=== PATIENT | female | born 1940 | race Caucasian/White ===

== ENCOUNTER 2021-02-28 11:23 | Observation (INO) | payer MEDICARE, OTHER ==
[2021-02-28] MEDS ORDERED: Zofran 4 MG/2 ML VIAL IV ONE (11:50)
[2021-02-28] MEDS ORDERED: PROTONIX 40 MG IV IV ONE ×2 (11:50→12:05)
[2021-02-28] MEDS ORDERED: MORPHINE SULFATE 4 MG INJ IV ONE (11:50)
[2021-02-28] MEDS ORDERED: APRESOLINE 20 MG/ML INJ IV ONE (11:52)
[2021-02-28] MEDS ORDERED: Sodium Chloride 0.9% 1000 ML 1,000 ML IV SCH (12:00)
[2021-02-28] MEDS ORDERED: Zofran 4 MG/2 ML VIAL ONE (12:04)
[2021-02-28] MEDS ORDERED: MORPHINE SULFATE 4 MG INJ ONE (12:05)
[2021-02-28] MEDS ORDERED: APRESOLINE 20 MG/ML INJ ONE ×2 (12:05→15:11)
[2021-02-28] MEDS ORDERED: Sodium Chloride 0.9% 1000 ML 1,000 ML ONE (12:05)
[2021-02-28 12:15] LABS: Absolute Neutrophil Ct (ANC) 15.54 (1.4-6.9); BASOPHIL % 0.1 % (0.0-0.4); Basophil (Absolute #) 0.01 (0-0.4); Eosinophil (Absolute #) 0 (0-0.5); Hematocrit 33.6 % (35-47); Hemoglobin 10.5 gm/dl (12.0-16.0); Lymphocytes % 4.1 % (24.0-44.0); Mean Cell Volume 103.1 fl (78-100); Mean Corpuscular Hemoglobin 32.2 pg (26-32); Mean Corpuscular Hgb Concent. 31.3 g/dl (32-36); Monocyte (Absolute #) 0.99 (0.0-1.3); Monocytes % 5.7 % (0.0-12.0); Neutrophil % 90.1 % (36.0-66.0); Platelet Count 217 K/mm3 (150-450); Red Blood Count 3.26 M/mm3 (4.1-5.4); Red Cell Distribution Width 13.5 % (11.5-14.0); White Blood Count 17.2 K/mm3 (4.0-10.5)
[2021-02-28 12:18] LABS: ALKALINE PHOSPHATASE 70 U/L (38-126); AMYLASE 58 U/L (30-110); BLOOD UREA NITROGEN 37 mg/dL (7-17); Calcium 9.9 mg/dL (8.4-10.2); Creatinine 1 1.78 mg/dL (0.52-1.04); EST GLOMERULAR FILTRATION RATE 29.1 ML/MIN; Glucose 181 mg/dL (74-106); SGOT/AST 23 U/L (14-36); Total Protein 7.1 g/dL (6.3-8.2)
--- NOTE | 2021-02-28 12:21 | XRAY ---
Indication: Head and neck pain. Status post fall. Syncope. Multiple contiguous axial images obtained through the head without contrast. Comparison: None Age-appropriate global atrophy and moderate/advanced periventricular degenerative micro-ischemia bilaterally. No acute intracranial hemorrhage, abnormal extra-axial fluid collection, or mass effect. Fourth ventricle is midline without hydrocephalus. Bony calvarium intact. Visualized paranasal sinuses and mastoid air cells are clear. Impression: Nonacute senile brain.
[2021-02-28 12:25] LABS: Appearance CLOUDY (CLEAR); Bilirubin NEGATIVE (NEGATIVE); Blood NEGATIVE Ery/ul (0-5); Glucose NEGATIVE (NEGATIVE); Ketones NEGATIVE (NEGATIVE); Leukocyte Esterase MODERATE (NEGATIVE); Nitrite NEGATIVE (NEGATIVE); Protein,Urine Dip 100 (Negative); Specific Gravity 1.014 (1.005-1.025); Urobilinogen NEGATIVE mg/dL (0-1); WBC >100 /HPF (0-5)
--- NOTE | 2021-02-28 12:25 | XRAY ---
Indication: Head and neck pain. Status post fall. Syncope. Multiple contiguous axial images obtained through the cervical spine. Sagittal and coronal reformatted images obtained. Comparison: None Axial images are negative for acute fracture, suspicious bony lesions, or spinal canal stenosis. Minimal/mild C3-C6 degenerative endplate spurring and mild multilevel bilateral degenerative facet hypertrophy. Sagittal and coronal reformatted images demonstrates normal alignment with minimal C3-C6 disc space narrowing. No acute compression fracture, subluxation, or jumped facet. Normal appearing craniocervical junction. Visualized noncontrasted soft tissues demonstrates moderate scattered arteriosclerotic calcifications bilaterally and biapical pulmonary emphysema. Impression: 1. Negative for acute fracture/subluxation. 2. Incidental multilevel degenerative changes, arteriosclerotic calcifications, and pulmonary emphysema.
[2021-02-28 12:26] LABS: Bacteria NONE SEEN /HPF (NEGATIVE); Budding Yeast Rare /HPF (NEGATIVE); Epithelial Cells RARE /HPF (FEW)
--- NOTE | 2021-02-28 12:26 | XRAY ---
Indication: Abdomen pain, vomiting, and syncope. Comparison: None Portable chest hyperinflated and clear. Heart not enlarged. Aorta is mildly atherosclerotic. Bony thorax intact with mild osteopenia and degenerative changes. Impression: Nonacute hyperinflated chest with chronic features.
--- NOTE | 2021-02-28 12:37 | XRAY ---
Indication: Left lower quadrant pain. Status post fall. Syncope. Multiple contiguous axial images obtained through the abdomen and pelvis without contrast. Comparison: None Study slightly degraded by beam artifact from patient's arms. Lung bases demonstrate pulmonary emphysema and minimal dependent atelectasis. No infiltrate or effusion. Heart is not enlarged with small pericardial effusion/thickening anteriorly. There is a large AAA with presence of aortobiiliac stent graft. Also incompletely visualized left femoral bypass stent graft. AAA measures at least 9.0 x 9.2 cm in greatest axial dimension and at least 12.2 cm in length. Lack of IV contrast precludes further characterization and also limits evaluation for active hemorrhage/leak. There is tiny right abdominal and pelvic free fluid. No free air. Lack of IV contrast and little peritoneal fat limits evaluation of the solid organs. Pancreas not well visualized. Noncontrasted stomach and bowel loops appear nonobstructed. There are a few bilateral renal cysts, largest right mid to upper pole measuring 5.7 cm. Remaining liver, gallbladder, spleen, adrenal glands, kidneys, ureters, and bladder are unremarkable for noncontrast exam. Osseous structures demonstrate osteopenia, mild/moderate degenerative changes throughout the lumbar spine, and L4-S1 laminectomy Impression: 1. Large AAA with aortobiiliac stent graft as detailed. Lack of IV contrast limits further characterization and evaluation for active hemorrhage/leak. However there is tiny abdominal and pelvic free fluid. 2. Nonvisualization pancreas. 3. Bilateral renal cysts, pulmonary emphysema, and chronic bony findings. 4. Incidental small anterior pericardial effusion/thickening. Echocardiogram may yield further information. Comment: Telephone report was given to ordering clinician, Dr. Jay at 1225 hrs. on February 28, 2021.
[2021-02-28 12:54] LABS: CHLORIDE 105 mmol/L (98-107); Potassium 4.8 mmol/L (3.5-5.1); SGPT/ALT 16 U/L (0-35); SODIUM 143 mmol/L (137-145)
[2021-02-28 12:55] LABS: LIPASE 71 U/L (23-300)
[2021-02-28 12:56] LABS: Carbon Dioxide 27 mmol/L (22-30)
[2021-02-28 13:20] LABS: Hematocrit 32.2 % (35-47); Hemoglobin 9.7 gm/dl (12.0-16.0); Mean Cell Volume 105.9 fl (78-100); Mean Corpuscular Hemoglobin 31.9 pg (26-32); Mean Corpuscular Hgb Concent. 30.1 g/dl (32-36); Mean Platelet Volume 10.9 fl (7.5-11.0); Platelet Count 195 K/mm3 (150-450); Red Blood Count 3.04 M/mm3 (4.1-5.4); Red Cell Distribution Width 13.5 % (11.5-14.0); White Blood Count 17.5 K/mm3 (4.0-10.5)
--- NOTE | 2021-02-28 13:25 | ERPHSYRPT ---
- History of Present Illness Time Seen by Provider: 02/28/21 11:49 Historian: patient, family, EMS Patient Subjective Stated Complaint: Per EMS and daughter, "She has had abdominal pain and been passing out." Triage Nursing Assessment: The patient's daughter reported the patient was complaining of abdominal pain at home this morning. The daughter checks on the patient at least 4 times per day and is a good historian for the patient. Daughter reported the patient has lost significant weight, become increasingly weak, and exhibited more confusion. Unknown if the patient has fallen. The daughter reported noticing a decreased oral food/fluid intake over the past few days. Patient presented confused and weak. Able to answer name and month. Incorrect on year and president. Head atraumatic normocephalic save a sing site of ecchymosis above the right eyebrow. Pupils 3mm direct/consensual reaction to light. Oral mucosa pale/dry. neck without lymphadenopathy. Symmetrical chest expansion. heart tones S1/S2 regular rate and rhythm. Lungs vesicular with adequate airflow. Abdomen flat with mild distention in the URQ/ULQ and tender to palpation. Hypoactive bowel sounds. Peipheral pulses +2 bilateral. No noted dependent edema. Physician History: 80 years old female with history of hypertension, AAA status post surgical and endovascular repair in the past presented in the ER with chief complaint of abdominal pain since yesterday with progressive worsening moderate to severe sharp nature in the upper abdomen with radiation to the back. Patient lives alone and daughter keeps check on her and this morning she was not out of bed, patient reported to daughter she has been falling and hit her head and keep passing out because of the pain. She also is confused and not acting her baseline. She is generally weak all over. She is on Xarelto as well. Timing/Duration: yesterday, gradual onset, worse Activities at Onset: rest Quality: sharpness Abdominal Pain Onset Location: RUQ, LUQ, epigastric, periumbilical Pain Radiation: back Severity of Pain-Max: severe Severity of Pain-Current: moderate Modifying Factors: Improves With: nothing Associated Symptoms: syncope Previous symptoms: no prior history Allergies/Adverse Reactions: No Known Drug Allergies Allergy (Verified 02/28/21 17:37) Home Medications: Coreg 12.5 mg 12.5 mg PO BID 07/19/12 [History] Simvastatin 40 mg 40 mg PO DAILY 07/19/12 [History] Xarelto 15 mg PO DAILY 07/19/12 [History] PANTOPRAZOLE 40 mg Tablet [Protonix 40MG Tablet] 1 tab PO BID 02/28/21 [History] lisinopriL [Zestril] 1 tab PO DAILY 02/28/21 [History] Hx Tetanus, Diphtheria Vaccination/Date Given: No (PT UNSURE) Hx Influenza Vaccination/Date Given: Yes (2010) Hx Pneumococcal Vaccination/Date Given: No Travel Risk - International Travel Have you traveled outside of the country in past 3 weeks: No - Coronavirus Screening Close contact with a COVID-19 positive Pt in past 14-21 Days: No - Vaccine Status Have you recieved a Covid-19 vaccination: Yes Patient Care Technician: Moderna - Vaccination Dates Date of 2cond Vaccination (if applicable): 12/13/20 - Review of Systems Constitutional: Fatigue, Lethargy Eyes: No Symptoms Ears, Nose, & Throat: No Symptoms Respiratory: No Symptoms Cardiac: No Symptoms Abdominal/Gastrointestinal: Abdominal Pain, Nausea Genitourinary Symptoms: No Symptoms Musculoskeletal: Back Pain Skin: No Symptoms Neurological: Lethargy Psychological: No Symptoms Endocrine: No Symptoms Hematologic/Lymphatic: No Symptoms Immunological/Allergic: No Symptoms - Past Medical History Pertinent Past Medical History: Yes Neurological History: No Pertinent History ENT History: No Pertinent History Cardiac History: Arrhythmia, Hypertension, Peripheral Vascular Disease Respiratory History: COPD Endocrine Medical History: No Pertinent History Musculoskeletal History: Arthritis GI Medical History: Colitis - Past Surgical History Past Surgical History: Yes Cardiac: Vascular Surgery, Other Gastrointestinal: Appendectomy, Cholecystectomy Female Surgical History: Hysterectomy Other Surgical History: AAA REPAIR-2 WKS AGO. - Social History Smoking Status: Current every day smoker How long have you smoked: "YEARS" Exposure to second hand smoke: No Drug Use: none Patient Lives Alone: No (lives with her ) - Nursing Vital Signs Nursing Vital Signs: Initial Vital Signs Temperature 97.9 F 02/28/21 11:23 Pulse Rate 70 02/28/21 11:23 Respiratory Rate 14 02/28/21 11:23 Blood Pressure 216/146 02/28/21 11:23 O2 Sat by Pulse Oximetry 98 02/28/21 11:23 Pain Scale Pain Intensity 6 - Physical Exam General Appearance: no apparent distress, alert, lethargy Eye Exam: PERRL/EOMI, pale conjunctivae, other Ears, Nose, Throat Exam: normal ENT inspection, TMs normal, pharynx normal Neck Exam: normal inspection, non-tender, supple, full range of motion Respiratory Exam: normal breath sounds, lungs clear Cardiovascular Exam: regular rate/rhythm, normal heart sounds Gastrointestinal/Abdomen Exam: tenderness (Generalized), distention, guarding Back Exam: normal inspection, normal range of motion Extremity Exam: normal inspection, normal range of motion, pelvis stable Neurologic Exam: alert, oriented x 3, cooperative, information coder II-XII nml as tested Skin Exam: pale SpO2 Interpretation: normal SpO2: 92 O2 Delivery: Room Air - Course EKG Interpreted by Me: RATE (66), Sinus Rhythm, NORMAL AXIS, NORMAL INTERVALS, Q-wave (Anteroseptal) Ordered Tests: Active Orders 24 hr Category Date Time Status Code Status Order ROUTINE Care 02/28/21 17:26 Active EKG-ER Only STAT Care 02/28/21 11:50 Completed Alejandre [Catheter-[place] Alejandre] STAT Care 02/28/21 17:00 Completed IV Care Q6H Care 02/28/21 17:26 Active IV Insertion STAT Care 02/28/21 11:50 Completed NPO (ED) STAT Care 02/28/21 11:[address] in Observation ROUTINE Care 02/28/21 17:26 Active Weight,Daily 0600 Care 02/28/21 17:26 Active Heart-Healthy Diet Diet 02/28/21 Dinner Active ABDOMEN AND PELVIS W/0 CONTRAS [CT] Stat Exams 02/28/21 11:49 Completed CERVICAL SPINE WO CONTRAST [CT] Stat Exams 02/28/21 11:50 Completed CHEST 1 VIEW (PORTABLE) Stat Exams 02/28/21 11:51 Completed CTA ABDOMEN W AND/OR WO CONTRA [CT] Stat Exams 02/28/21 13:32 Completed HEAD WITHOUT CONTRAST [CT] Stat Exams 02/28/21 11:50 Completed AMYLASE Stat Lab 02/28/21 11:20 Completed CBC Stat Lab 02/28/21 12:50 Completed CBC W DIFF AM.LAB Lab 03/01/21 04:00 Ordered CBC W DIFF Stat Lab 02/28/21 11:20 Completed CMP AM.LAB Lab 03/01/21 04:00 Ordered CMP Stat Lab 02/28/21 11:20 Completed CULTURE,URINE Stat Lab 02/28/21 11:20 Received LIPASE Stat Lab 02/28/21 11:20 Completed Lactic Acid Stat Lab 02/28/21 11:50 Completed TROPONIN Q3H Lab 02/28/21 11:20 Completed TROPONIN Q3H Lab 03/01/21 00:00 Ordered UA W/RFX UR CULTURE Stat Lab 02/28/21 11:20 Completed Transfer Order Routine Transfer 02/28/21 Completed Medication Summary Generic Name Dose Route Start Last Admin Trade Name Artur PRN Reason Stop Dose Admin Hydralazine HCl 10 mg 02/28/21 17:26 Apresoline 20 Mg/Ml Inj IV 03/30/21 17:25 Q4H PRN PRN HYPERTENSION Sodium Chloride 1,000 mls @ 100 mls/hr 02/28/21 17:26 02/28/21 18:28 Sodium Chloride 0.9% 1000 Ml IV 03/30/21 17:25 Not Given .Q10H JAGDEEP Lorazepam 0.5 mg 02/28/21 18:33 02/28/21 18:59 Ativan 2 Mg/1 Ml Vial IV 03/30/21 18:32 0.5 mg Q2-4HPRN PRN Administration ANXIETY Morphine Sulfate 2 mg 02/28/21 17:26 02/28/21 20:49 Morphine Sulfate 2 Mg Inj IV 03/05/21 17:25 2 mg Q2H PRN PRN Administration PAIN Ondansetron HCl 4 mg 02/28/21 17:26 02/28/21 18:20 Zofran 4 Mg/2 Ml Vial IV 03/30/21 17:25 4 mg Q6H PRN PRN Administration NAUSEA/VOMITING Discontinued Medications Generic Name Dose Route Start Last Admin Trade Name Artur PRN Reason Stop Dose Admin Fentanyl Citrate 50 mcg 02/28/21 15:24 02/28/21 15:26 Sublimaze 100 Mcg/2 Ml IV 02/28/21 15:25 50 mcg STAT ONE Administration Fentanyl Citrate Confirm 02/28/21 15:25 Sublimaze 100 Mcg/2 Ml Administered 02/28/21 15:26 Dose 100 mcg .ROUTE .STK-MED ONE Fentanyl Citrate 50 mcg 02/28/21 17:06 02/28/21 17:08 Sublimaze 100 Mcg/2 Ml IV 02/28/21 17:07 50 mcg STAT ONE Administration Fentanyl Citrate Confirm 02/28/21 17:06 Sublimaze 100 Mcg/2 Ml Administered 02/28/21 17:07 Dose 100 mcg .ROUTE .STK-MED ONE Hydralazine HCl 10 mg 02/28/21 11:52 02/28/21 12:08 Apresoline 20 Mg/Ml Inj IV 02/28/21 11:53 10 mg STAT ONE Administration Hydralazine HCl Confirm 02/28/21 12:05 Apresoline 20 Mg/Ml Inj Administered 02/28/21 12:06 Dose 20 mg .ROUTE .STK-MED ONE Hydralazine HCl Confirm 02/28/21 15:11 Apresoline 20 Mg/Ml Inj Administered 02/28/21 15:12 Dose 20 mg .ROUTE .STK-MED ONE Hydralazine HCl 10 mg 02/28/21 15:13 02/28/21 15:16 Apresoline 20 Mg/Ml Inj IV 02/28/21 15:14 10 mg STAT ONE Administration Sodium Chloride 1,000 mls @ 100 mls/hr 02/28/21 12:00 02/28/21 12:07 Sodium Chloride 0.9% 1000 Ml IV 03/30/21 11:59 100 mls/hr .Q10H JAGDEEP Administration Sodium Chloride Confirm 02/28/21 12:05 Sodium Chloride 0.9% 1000 Ml Administered 02/28/21 12:06 Dose 1,000 mls @ ud .ROUTE .STK-MED ONE Morphine Sulfate 4 mg 02/28/21 11:50 02/28/21 12:07 Morphine Sulfate 4 Mg Inj IV 02/28/21 11:51 4 mg STAT ONE Administration Morphine Sulfate Confirm 02/28/21 12:05 Morphine Sulfate 4 Mg Inj Administered 02/28/21 12:06 Dose 4 mg .ROUTE .STK-MED ONE Morphine Sulfate 2 mg 02/28/21 14:17 02/28/21 14:22 Morphine Sulfate 2 Mg Inj IV 02/28/21 14:18 2 mg STAT ONE Administration Morphine Sulfate Confirm 02/28/21 14:21 Morphine Sulfate 2 Mg Inj Administered 02/28/21 14:22 Dose 2 mg .ROUTE .STK-MED ONE Ondansetron HCl 4 mg 02/28/21 11:50 02/28/21 12:07 Zofran 4 Mg/2 Ml Vial IV 02/28/21 11:51 4 mg STAT ONE Administration Ondansetron HCl Confirm 02/28/21 12:04 Zofran 4 Mg/2 Ml Vial Administered 02/28/21 12:05 Dose 4 mg .ROUTE .STK-MED ONE Pantoprazole Sodium 40 mg 02/28/21 11:50 02/28/21 12:08 Protonix 40 Mg Iv IV 02/28/21 11:51 40 mg STAT ONE Administration Pantoprazole Sodium Confirm 02/28/21 12:05 Protonix 40 Mg Iv Administered 02/28/21 12:06 Dose 40 mg IV .STK-MED ONE Lab/Rad Data: Laboratory Result Diagrams 02/28/21 12:50 02/28/21 11:20 Laboratory Results 02/28/21 02/28/21 02/28/21 Range/Units 15:46 12:50 11:50 WBC 17.5 H (4.0-10.5) K/mm3 RBC 3.04 L (4.1-5.4) M/mm3 Hgb 9.7 L (12.0-16.0) gm/dl Hct 32.2 L (35-47) % MCV 105.9 H (78-100) fl MCH 31.9 (26-32) pg MCHC 30.1 L (32-36) g/dl RDW 13.5 (11.5-14.0) % Plt Count 195 (150-450) K/mm3 MPV 10.9 (7.5-11.0) fl Gran % (36.0-66.0) % Eos # (Auto) (0-0.5) Absolute Lymphs (auto) (1.0-4.6) Absolute Monos (auto) (0.0-1.3) Lymphocytes % (24.0-44.0) % Monocytes % (0.0-12.0) % Eosinophils % (0.00-5.0) % Basophils % (0.0-0.4) % Absolute Granulocytes (1.4-6.9) Basophils # (0-0.4) Sodium (137-145) mmol/L Potassium (3.5-5.1) mmol/L Chloride (98-107) mmol/L Carbon Dioxide (22-30) mmol/L Anion Gap BUN (7-17) mg/dL Creatinine (0.52-1.04) mg/dL Estimated GFR ML/MIN Glucose (74-106) mg/dL Lactic Acid 2.5 H (0.4-2.0) Calcium (8.4-10.2) mg/dL Total Bilirubin (0.2-1.3) mg/dL AST (14-36) U/L ALT (0-35) U/L Alkaline Phosphatase (38-126) U/L Troponin I (0.000-0.034) ng/mL Serum Total Protein (6.3-8.2) g/dL Albumin (3.5-5.0) g/dL Amylase (30-110) U/L Lipase (23-300) U/L Urine Color (YELLOW) Urine Appearance (CLEAR) Urine pH (5-6) Ur Specific [place] (1.005-1.025) Urine Protein (Negative) Urine Ketones (NEGATIVE) Urine Blood (0-5) Coleman/ul Urine Nitrite (NEGATIVE) Urine Bilirubin (NEGATIVE) Urine Urobilinogen (0-1) mg/dL Ur Leukocyte Esterase (NEGATIVE) Urine WBC (Auto) (0-5) /HPF Urine RBC (Auto) (0-2) /HPF U Epithel Cells (Auto) (FEW) /HPF Urine Bacteria (Auto) (NEGATIVE) /HPF Urine Yeast (Budding) (NEGATIVE) /HPF Urine Culture Reflexed (NO) Urine Glucose (NEGATIVE) mg/dL Influenza Type A Ag NEGATIVE (NEGATIVE) Influenza Type B Ag NEGATIVE (NEGATIVE) RSV (PCR) NEGATIVE (Negative) SARS-CoV-2 (PCR) NEGATIVE (NEGATIVE) 02/28/21 02/28/21 02/28/21 Range/Units 11:20 11:20 11:20 WBC (4.0-10.5) K/mm3 RBC (4.1-5.4) M/mm3 Hgb (12.0-16.0) gm/dl Hct (35-47) % MCV (78-100) fl MCH (26-32) pg MCHC (32-36) g/dl RDW (11.5-14.0) % Plt Count (150-450) K/mm3 MPV (7.5-11.0) fl Gran % (36.0-66.0) % Eos # (Auto) (0-0.5) Absolute Lymphs (auto) (1.0-4.6) Absolute Monos (auto) (0.0-1.3) Lymphocytes % (24.0-44.0) % Monocytes % (0.0-12.0) % Eosinophils % (0.00-5.0) % Basophils % (0.0-0.4) % Absolute Granulocytes (1.4-6.9) Basophils # (0-0.4) Sodium 143 (137-145) mmol/L Potassium 4.8 (3.5-5.1) mmol/L Chloride 105 (98-107) mmol/L Carbon Dioxide 27 (22-30) mmol/L Anion Gap Not Reportable BUN 37 H (7-17) mg/dL Creatinine 1.78 H (0.52-1.04) mg/dL Estimated GFR 29.1 ML/MIN Glucose 181 H (74-106) mg/dL Lactic Acid (0.4-2.0) Calcium 9.9 (8.4-10.2) mg/dL Total Bilirubin 0.80 (0.2-1.3) mg/dL AST 23 (14-36) U/L ALT 16 (0-35) U/L Alkaline Phosphatase 70 (38-126) U/L Troponin I < 0.012 (0.000-0.034) ng/mL Serum Total Protein 7.1 (6.3-8.2) g/dL Albumin 4.0 (3.5-5.0) g/dL Amylase 58 (30-110) U/L Lipase 71 (23-300) U/L Urine Color YELLOW (YELLOW) Urine Appearance CLOUDY (CLEAR) Urine pH 6.0 (5-6) Ur Specific [place] 1.014 (1.005-1.025) Urine Protein 100 (Negative) Urine Ketones NEGATIVE (NEGATIVE) Urine Blood NEGATIVE (0-5) Coleman/ul Urine Nitrite NEGATIVE (NEGATIVE) Urine Bilirubin NEGATIVE (NEGATIVE) Urine Urobilinogen NEGATIVE (0-1) mg/dL Ur Leukocyte Esterase MODERATE (NEGATIVE) Urine WBC (Auto) >100 (0-5) /HPF Urine RBC (Auto) 3-5 (0-2) /HPF U Epithel Cells (Auto) RARE (FEW) /HPF Urine Bacteria (Auto) NONE SEEN (NEGATIVE) /HPF Urine Yeast (Budding) Rare (NEGATIVE) /HPF Urine Culture Reflexed YES (NO) Urine Glucose NEGATIVE (NEGATIVE) mg/dL Influenza Type A Ag (NEGATIVE) Influenza Type B Ag (NEGATIVE) RSV (PCR) (Negative) SARS-CoV-2 (PCR) (NEGATIVE) 02/28/21 Range/Units 11:20 WBC 17.2 H (4.0-10.5) K/mm3 RBC 3.26 L (4.1-5.4) M/mm3 Hgb 10.5 L (12.0-16.0) gm/dl Hct 33.6 L (35-47) % MCV 103.1 H (78-100) fl MCH 32.2 H (26-32) pg MCHC 31.3 L (32-36) g/dl RDW 13.5 (11.5-14.0) % Plt Count 217 (150-450) K/mm3 MPV 11.0 (7.5-11.0) fl Gran % 90.1 H (36.0-66.0) % Eos # (Auto) 0 (0-0.5) Absolute Lymphs (auto) 0.70 L (1.0-4.6) Absolute Monos (auto) 0.99 (0.0-1.3) Lymphocytes % 4.1 L (24.0-44.0) % Monocytes % 5.7 (0.0-12.0) % Eosinophils % 0.0 (0.00-5.0) % Basophils % 0.1 (0.0-0.4) % Absolute Granulocytes 15.54 H (1.4-6.9) Basophils # 0.01 (0-0.4) Sodium (137-145) mmol/L Potassium (3.5-5.1) mmol/L Chloride (98-107) mmol/L Carbon Dioxide (22-30) mmol/L Anion Gap BUN (7-17) mg/dL Creatinine (0.52-1.04) mg/dL Estimated GFR ML/MIN Glucose (74-106) mg/dL Lactic Acid (0.4-2.0) Calcium (8.4-10.2) mg/dL Total Bilirubin (0.2-1.3) mg/dL AST (14-36) U/L ALT (0-35) U/L Alkaline Phosphatase (38-126) U/L Troponin I (0.000-0.034) ng/mL Serum Total Protein (6.3-8.2) g/dL Albumin (3.5-5.0) g/dL Amylase (30-110) U/L Lipase (23-300) U/L Urine Color (YELLOW) Urine Appearance (CLEAR) Urine pH (5-6) Ur Specific [place] (1.005-1.025) Urine Protein (Negative) Urine Ketones (NEGATIVE) Urine Blood (0-5) Coleman/ul Urine Nitrite (NEGATIVE) Urine Bilirubin (NEGATIVE) Urine Urobilinogen (0-1) mg/dL Ur Leukocyte Esterase (NEGATIVE) Urine WBC (Auto) (0-5) /HPF Urine RBC (Auto) (0-2) /HPF U Epithel Cells (Auto) (FEW) /HPF Urine Bacteria (Auto) (NEGATIVE) /HPF Urine Yeast (Budding) (NEGATIVE) /HPF Urine Culture Reflexed (NO) Urine Glucose (NEGATIVE) mg/dL Influenza Type A Ag (NEGATIVE) Influenza Type B Ag (NEGATIVE) RSV (PCR) (Negative) SARS-CoV-2 (PCR) (NEGATIVE) - Progress Progress: pain not gone completely, re-examined Progress Note: 02/28/21 13:53 80 years old is evaluated for abdominal pain with generalized weakness fatigue, pale discoloration and passing out. Patient is not in any distress on presentation but is sick looking. Her blood pressure is in 200s, given dose of hydralazine. She is also given morphine for pain relief. I have recommended CT abdomen pelvis with contrast but daughter who is the POA did not want to have any CT done with dye because of kidney function. I have discussed at length about limitation of CT without contrast about diagnosis of AAA leak which she understands. Patient daughter reports that she never wanted to have any kind of surgical procedure done. I have obtained CT head neck without contrast which are negative for any acute trauma related findings. No intracranial bleed. CT abdomen pelvis without contrast showed enlarged AAA 9 x 9.2 cm in greatest with possible leak as there is some free fluid in the pelvis. Because of contrast limitation full evaluation cannot be done but I believe patient is having AAA leak. On reevaluation her blood pressure dropped to 74 systolic. I have given her 2 units of blood on crossmatch emergently after discussion with daughter who agreed with transfusion. She is given fluid bolus as well and blood pressure improved. I have discussed with daughter in length about option of surgical repair/endovascular repair but she did not want anything to be done as patient wished not to go for any kind of surgical procedure. I have discussed with daughter's as well and he also did not want to have any kind of procedure done. Later on discussion with patient and family they agreed with going for endovascular procedure. I have called [facility] who does not do any endovascular procedure and I have had discussed with Dr. Joycelyn Preston who does not think patient can be taken care of at [place] with limited resources and recommended transfer to . I have called [facility] transfer line and have discussed with Dr. Aneesh Mckay who have reviewed films, recommended CTA abdomen pelvis to further evaluate whether patient would be a candidate for any kind of endovascular procedure or not. He did not give recommendations in favor of surgical procedure and also patient does not want to undergo any kind of open surgical procedure. CTA would be obtained and daughter did consent to have dye injection. [facility] would be contacted again after images are uploaded. 02/28/21 15:22 CTA Abdomen pelvis is done which showed active leak. Dr. Mckay has reviewed films, do not think patient is a good candidate for intervention even with endovascular intervention there is a high chance of patient ending up on dialysis afterwards. He has discussed with daughter in detail over the phone and she has talked to patient as well and the whole family decided not to proceed with any kind of surgical/endovascular procedure. Patient/family knows that from now onwards they would be comfort care, DNR. We will continue giving her pain medications, keep her blood pressure under control, patient is discussed with Dr. Brizuela, is admitted to hospital. Discussed with Dr.: Other (Dr. Gomez [id number], Dr.S Preston [id number], Dr. Garret Mckay [id number]) Counseled pt/family regarding: lab results, diagnosis, rad results - Departure Departure Disposition: In-patient Admission Clinical Impression: Leaking abdominal aortic aneurysm (AAA) Condition: Critical Critical Care Time: Yes Critical Care Time(excluding separately billable procedures): Critical 135-164 mins
[2021-02-28] MEDS ORDERED: MORPHINE SULFATE 2 MG INJ IV ONE (14:17)
[2021-02-28] MEDS ORDERED: MORPHINE SULFATE 2 MG INJ ONE (14:21)
--- NOTE | 2021-02-28 14:56 | XRAY ---
Indication: Abdominal pain. AAA. Conventional contrast enhanced CTA abdomen performed using 80 cc Isovue 370 contrast. Two-dimensional sagittal and coronal reformatted images obtained. Additional 3-dimensional reformatted images obtained using a separate workstation. Comparison: Same day CT abdomen/pelvis without contrast exam. There remains a large AAA unchanged in size. There is good contrast opacification of the abdominal aorta, major branches, and aortobiiliac stent grafts. The proximal aortic stent graft demonstrates 40-50% intraluminal narrowing. There is also tiny contrast extravasation anteriorly consistent with stent graft leak. Large matted soft tissue opacity up to 4 cm in thickness nearly encompasses the AAA, possible blood products/clots or soft tissue mass. Remaining distal aortoiliac stent graft appears widely patent. 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 There is normal CTA appearance of the more distal celiac artery and branches. Minimal arteriosclerotic disease seen at the origin of the superior mesenteric artery without critical stenosis or poststenotic dilatation. A normal appearing inferior mesenteric artery not seen. A single renal artery supplies each kidney with mild/moderate proximal arteriosclerotic disease, right greater than left. There is normal bilateral renal enhancement. Stable tiny right abdomen and pelvic free fluid. Normal visceral enhancement with continued poor visualization of the pancreas. Stable bilateral renal cysts. Impression: 1. Better definition of the AAA and aortobiiliac stent grafts. Suspect proximal aortic stent graft leak as detailed. There is also better definition of a large metastatic soft tissue opacity encompassing the AAA, possible blood products/clots or soft tissue mass. 2. Diffuse scattered arteriosclerotic disease including the proximal aortic stent graft. 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 Minimal disease in the superior mesenteric artery and mild/moderate disease in both main renal arteries without critical stenosis/obstruction. Comment: Telephone report was given to ordering clinician, Dr. Jay at 1414 hrs. on February 28, 2021.
[2021-02-28] MEDS: APRESOLINE 20 MG/ML INJ IV ONE ×2 (15:14→15:16)
[2021-02-28] MEDS ORDERED: SUBLIMAZE 100 MCG/2 ML IV ONE ×2 (15:24→17:06)
[2021-02-28] MEDS ORDERED: SUBLIMAZE 100 MCG/2 ML ONE ×2 (15:25→17:06)
[2021-02-28 16:50] LABS: INFLUENZA A NEGATIVE (NEGATIVE); INFLUENZA B NEGATIVE (NEGATIVE); RESPIRATORY SYNCTIAL VIRUS NEGATIVE (Negative)
[2021-02-28] MEDS ORDERED: APRESOLINE 20 MG/ML INJ IV PRN (17:26)
[2021-02-28] MEDS: MORPHINE SULFATE 2 MG INJ IV PRN ×2 (18:20→20:49)
[2021-02-28] MEDS: Zofran 4 MG/2 ML VIAL IV PRN (18:20)
[2021-02-28] MEDS: Sodium Chloride 0.9% 1000 ML 1,000 ML IV SCH (18:28)
[2021-02-28] MEDS ORDERED: Ativan 2 MG/1 ML VIAL IV PRN (18:33)
[2021-03-01] MEDS: MORPHINE SULFATE 2 MG INJ IV PRN ×7 (00:22→20:42)
[2021-03-01 07:00] LABS: ABO TYPING O; Antibody Screen NEGATIVE (NEGATIVE); RH TYPING POSITIVE
[2021-03-01 07:02] LABS: CROSS MATCH (PRBC) COMPATIBLE (COMPATIBLE)
[2021-03-01] MEDS: Ativan 2 MG/1 ML VIAL IV PRN ×2 (10:27→16:20)
[2021-03-01] MEDS: Zofran 4 MG/2 ML VIAL IV PRN (10:46)
[2021-03-01 18:24] VITALS: O2SAT 90
[2021-03-01] MEDS: Sodium Chloride 0.9% 1000 ML 1,000 ML IV SCH ×2 (22:23→22:24)
[2021-03-02] MEDS: MORPHINE SULFATE 2 MG INJ IV PRN ×5 (00:26→11:56)
[2021-03-02] MEDS: Sodium Chloride 0.9% 1000 ML 1,000 ML IV SCH (04:55)
[2021-03-02] MEDS: Zofran 4 MG/2 ML VIAL IV PRN (08:35)
[2021-03-02] MEDS: Ativan 2 MG/1 ML VIAL IV PRN (09:33)
--- NOTE | 2021-03-02 09:40 | PCM.DS ---
Discharge Summary Date of Admission: 02/28/21 17:15 Date of Discharge: 03/02/21 Admitting Physician: ALFREDO HARRIS MD Primary Care Provider: BIBIANA WHITMAN V Allergies Allergies No Known Drug Allergies Allergy (Verified 02/28/21 17:37) Hospital Summary - Vitals & Intake/Output Vital Signs: Vital Signs Temperature 98.6 F 03/01/21 16:00 Pulse Rate 78 03/01/21 16:00 Respiratory Rate 12 03/01/21 16:00 Blood Pressure 124/62 03/01/21 16:00 O2 Sat by Pulse Oximetry 90 L 03/01/21 16:00 Intake & Output: Intake & Output 02/27/21 02/28/21 03/01/21 03/02/21 11:59 11:59 11:59 11:59 Intake Total 750 Output Total 100 600 Balance 650 -600 Weight 47.536 kg 47.5 kg - Lab Result Diagrams: 02/28/21 12:50 02/28/21 11:20 Micro Results-Entire Visit: Microbiology 02/28/21 11:20 Urine Culture - Final Urine, Void <10K NORMAL SKIN PHUONG PROBABLE SKIN CONTAMINANT - Radiology Exams Ordered Rad Exams-Entire Visit: Radiology Procedures Category Date Time Status ABDOMEN AND PELVIS W/0 CONTRAS [CT] Stat Exams 02/28/21 11:49 Completed CERVICAL SPINE WO CONTRAST [CT] Stat Exams 02/28/21 11:50 Completed CHEST 1 VIEW (PORTABLE) Stat Exams 02/28/21 11:51 Completed CTA ABDOMEN W AND/OR WO CONTRA [CT] Stat Exams 02/28/21 13:32 Completed HEAD WITHOUT CONTRAST [CT] Stat Exams 02/28/21 11:50 Completed - Discharge Disposition: DC TO [facility] Condition: Critical Prescriptions: No Action Xarelto 15 mg PO DAILY Simvastatin 40 mg 40 mg PO DAILY Coreg 12.5 mg 12.5 mg PO BID PANTOPRAZOLE 40 mg Tablet [Protonix 40MG Tablet] 1 tab PO BID lisinopriL [Zestril] 1 tab PO DAILY Follow up with: BIBIANA WHITMAN MD [Primary Care Provider] -
[2021-03-02 11:56] VITALS: BP 112/64; PULSE 85
== END 2021-03-02 12:20 | disposition hospice, home (50) ==
LOC: ED 11:23 → MED SURG 17:15
PROVIDERS: ADMIT Family Medicine; ATTEND Family Medicine
DX: I71.4 Abdominal aortic aneurysm, without rupture (principal); R10.11 Right upper quadrant pain; R10.13 Epigastric pain; R10.33 Periumbilical pain; Z79.899 Other long term (current) drug therapy; R53.83 Other fatigue; I10 Essential (primary) hypertension; J44.9 Chronic obstructive pulmonary disease, unspecified; Z20.828 Contact with and (suspected) exposure to other viral communicable diseases; Z79.01 Long term (current) use of anticoagulants
CPT/HCPCS: 0241U; 36000; 36415; 36430; 51702; 70450; 71045; 72125; 74175; 74176; 80053; 81001; 82150; 83605; 83690; 84484; 85025; 85027; 86850; 86900; 86901; 86922; 87086; 93005; 96374; 96375; 96376; 99285; 99291; 99292; P9016; G0378; J0360; J2060; J2270; J2405; J3010